=== PATIENT | male | born 1940 | race Caucasian/White ===

== ENCOUNTER 2021-07-14 10:43 | Observation (INO) | payer MEDICARE ==
[2021-07-14] MEDS ORDERED: ASPIRIN 81 MG PO STA (11:03)
[2021-07-14] MEDS ORDERED: SODIUM CHLORIDE 0.9% 1,000 ML IV STA (11:03)
--- NOTE | 2021-07-14 11:16 | ED ---
General Adult HPI - General Chief complaint: Chest Pain Stated complaint: Chest pain/High HR/Dizzy Time Seen by Provider: 07/14/21 10:53 Source: patient, RN notes reviewed Mode of arrival: wheelchair Limitations: no limitations - History of Present Illness Initial comments: 81-year-old male presents to the emergency department accompanied by his , f or evaluation of chest pain, dizziness, and elevated heart rate. Patient states his symptoms began with dizziness this morning while standing making breakfast. States his Apple watch told him his heart rate was around 150. Also complained of mild indigestion. Reports he then went to lay down and while at rest his heart rate dropped down into the 80s and he felt more comfortable. However, patient reports developing midsternal chest pressure a short time later therefore his gave him 2 baby aspirin and brought him to the ER. Patient states upon arrival he had a brief episode of sharp left-sided chest pain that lasted less than a minute and subsided rapidly. Patient denies fever, chills, headache, shortness of breath or difficulty breathing, abdominal pain, nausea, vomiting, or bowel and bladder changes. - Related Data Home Medications Medication Instructions Recorded Confirmed Aspirin EC [Ecotrin Low Dose] 81 mg PO HS 07/14/21 07/14/21 Cyanocobalamin (Vitamin B-12) 1,000 mcg PO BID 07/14/21 07/14/21 [Vitamin B-12] Finasteride [Proscar] 5 mg PO DAILY 07/14/21 07/14/21 Fluticasone Nasal [place] [Flonase 2 spray EA NOSTRIL DAILY 07/14/21 07/14/21 Nasal [place]] Losartan Potassium 50 mg PO DAILY 07/14/21 07/14/21 Tamsulosin [Flomax] 0.4 mg PO HS 07/14/21 07/14/21 hydroCHLOROthiazide [Hydrodiuril] 12.5 mg PO DAILY 07/14/21 07/14/21 Allergies Allergy/AdvReac Type Severity Reaction Status Date / Time Penicillins Allergy Anaphylaxis Verified 07/14/21 12:23 hydrocodone [From Vicodin] AdvReac Hallucinati Verified 07/14/21 12:23 ons Sulfa (Sulfonamide AdvReac Nausea & Verified 07/14/21 12:23 Antibiotics) Vomiting Review of Systems ROS Statement: Those systems with pertinent positive or pertinent negative responses have been documented in the HPI. ROS Other: All systems not noted in ROS Statement are negative. Past Medical History Past Medical History: Hypertension, Prostate Disorder Additional Past Medical History / Comment(s): polio, diverticulitis History of Any Multi-Drug Resistant Organisms: None Reported Past Surgical History: Orthopedic Surgery Past Psychological History: No Psychological Hx Reported Smoking Status: Never smoker Past Alcohol Use History: Occasional Past Drug Use History: None Reported General Exam Limitations: no limitations (Well-developed, well-nourished male in no acute distress. Initial temperature 98.7, pulse 94, respirations 18, blood pressure 153/89, pulse ox 99% on room air.) General appearance: alert, in no apparent distress Eye exam: Present: normal appearance, PERRL, EOMI. Absent: scleral icterus, conjunctival injection, periorbital swelling Neck exam: Present: normal inspection. Absent: tenderness, meningismus, l ymphadenopathy Respiratory exam: Present: normal lung sounds bilaterally. Absent: respiratory distress, wheezes, rales, rhonchi, stridor Cardiovascular Exam: Present: regular rate, normal rhythm, normal heart sounds. Absent: systolic murmur, diastolic murmur, rubs, gallop, clicks GI/Abdominal exam: Present: soft, normal bowel sounds. Absent: distended, tenderness, guarding, rebound, rigid Neurological exam: Present: alert, oriented X3, CN II-XII intact Psychiatric exam: Present: normal affect, normal mood Skin exam: Present: warm, dry, intact, normal color. Absent: rash Course Vital Signs 07/14/21 07/14/21 10:49 16:00 Temperature 98.7 F Pulse Rate 94 82 Respiratory 18 19 Rate Blood Pressure 153/89 169/78 O2 Sat by Pulse 99 98 Oximetry Medical Decision Making - Medical Decision Making 81-year-old male presents to the emergency department for evaluation after incident of elevated heart rate, dizziness, and brief chest pain prior to arrival. Upon exam, patient is resting comfortably, with no increased work of breathing, palpitations, or active chest pain. Heart rate in the 80s. EKG shows normal sinus rhythm with no ST segment elevation or depression. Initial troponin is negative. Chest x-ray is unremarkable. Patient took 2 baby aspirin prior to arrival and was given an additional 2 baby aspirin while present department. This patient's care was discussed with my attending . Patient agrees to admission for serial enzymes and cardiology evaluation. Dr. Ndiaye spoke with Dr. Mortensen regarding this patient's admission plan of care. - Lab Data Result diagrams: 07/14/21 11:16 07/14/21 11:16 Lab Results 07/14/21 07/14/21 07/14/21 Range/Units 11:16 11:16 11:16 WBC 4.9 (3.8-10.6) k/uL RBC 5.17 (4.30-5.90) m/uL Hgb 17.4 (13.0-17.5) gm/dL Hct 49.6 (39.0-53.0) % MCV 96.1 (80.0-100.0) fL MCH 33.7 (25.0-35.0) pg MCHC 35.1 (31.0-37.0) g/dL RDW 13.2 (11.5-15.5) % Plt Count 107 L (150-450) k/uL MPV 7.4 Neutrophils % 55 % Lymphocytes % 33 % Monocytes % 7 % Eosinophils % 2 % Basophils % 1 % Neutrophils # 2.7 (1.3-7.7) k/uL Lymphocytes # 1.6 (1.0-4.8) k/uL Monocytes # 0.4 (0-1.0) k/uL Eosinophils # 0.1 (0-0.7) k/uL Basophils # 0.0 (0-0.2) k/uL Hyperchromasia Slight PT 10.0 (9.0-12.0) sec INR 0.9 (<1.2) APTT 21.7 L (22.0-30.0) sec Sodium 136 L (137-145) mmol/L Potassium 4.1 (3.5-5.1) mmol/L Chloride 102 (98-107) mmol/L Carbon Dioxide 23 (22-30) mmol/L Anion Gap 11 mmol/L BUN 17 (9-20) mg/dL Creatinine 1.00 (0.66-1.25) mg/dL Est GFR (CKD-EPI)AfAm 82 (>60 ml/min/1.73 sqM) Est GFR (CKD-EPI)NonAf 71 (>60 ml/min/1.73 sqM) Glucose 125 H (74-99) mg/dL Calcium 9.8 (8.4-10.2) mg/dL Magnesium 1.9 (1.6-2.3) mg/dL Total Bilirubin 0.9 (0.2-1.3) mg/dL AST 23 (17-59) U/L ALT 17 (4-49) U/L Alkaline Phosphatase 58 (38-126) U/L Troponin I (0.000-0.034) ng/mL Total Protein 7.8 (6.3-8.2) g/dL Albumin 4.8 (3.5-5.0) g/dL 07/14/21 Range/Units 11:16 WBC (3.8-10.6) k/uL RBC (4.30-5.90) m/uL Hgb (13.0-17.5) gm/dL Hct (39.0-53.0) % MCV (80.0-100.0) fL MCH (25.0-35.0) pg MCHC (31.0-37.0) g/dL RDW (11.5-15.5) % Plt Count (150-450) k/uL MPV Neutrophils % % Lymphocytes % % Monocytes % % Eosinophils % % Basophils % % Neutrophils # (1.3-7.7) k/uL Lymphocytes # (1.0-4.8) k/uL Monocytes # (0-1.0) k/uL Eosinophils # (0-0.7) k/uL Basophils # (0-0.2) k/uL Hyperchromasia PT (9.0-12.0) sec INR (<1.2) APTT (22.0-30.0) sec Sodium (137-145) mmol/L Potassium (3.5-5.1) mmol/L Chloride (98-107) mmol/L Carbon Dioxide (22-30) mmol/L Anion Gap mmol/L BUN (9-20) mg/dL Creatinine (0.66-1.25) mg/dL Est GFR (CKD-EPI)AfAm (>60 ml/min/1.73 sqM) Est GFR (CKD-EPI)NonAf (>60 ml/min/1.73 sqM) Glucose (74-99) mg/dL Calcium (8.4-10.2) mg/dL Magnesium (1.6-2.3) mg/dL Total Bilirubin (0.2-1.3) mg/dL AST (17-59) U/L ALT (4-49) U/L Alkaline Phosphatase (38-126) U/L Troponin I <0.012 (0.000-0.034) ng/mL Total Protein (6.3-8.2) g/dL Albumin (3.5-5.0) g/dL - EKG Data EKG shows normal: sinus rhythm Rate: normal EKG Comments: EKG was obtained at 1055 and shows normal sinus rhythm. Ventricular rate 80. IL interval 186. QRS duration 88. QT/QTC 328/378. No ST segment elevation or depression noted. - Radiology Data Radiology results: report reviewed, image reviewed Chest x-ray was obtained. Report was reviewed in its entirety. Impression per Dr. Faye is no acute pulmonary process. Disposition Clinical Impression: Chest pain, Dizziness Disposition: ADMITTED IP TO THIS [facility] Condition: Serious Decision Date: 07/14/21 Decision Time: 13:55
--- NOTE | 2021-07-14 11:27 | XR ---
EXAMINATION TYPE: XR chest 2V DATE OF EXAM: 07/14/2021 COMPARISON: None INDICATION: Chest pain TECHNIQUE: Frontal and lateral views of the chest are obtained. FINDINGS: The heart size is normal. The pulmonary vasculature is normal. The lungs are clear. IMPRESSION: 1. No acute pulmonary process.
[2021-07-14 11:33] LABS: Basophils % (A) 1 %; Eosinophils # (A) 0.1 k/uL (0-0.7); Eosinophils % (A) 2 %; HCT 49.6 % (39.0-53.0); HGB 17.4 gm/dL (13.0-17.5); Hyperchromasia Slight; Lymphocytes # (A) 1.6 k/uL (1.0-4.8); Lymphocytes % (A) 33 %; MCH 33.7 pg (25.0-35.0); MCHC 35.1 g/dL (31.0-37.0); MCV 96.1 fL (80.0-100.0); Mean Platelet Volume 7.4; Monocytes # (A) 0.4 k/uL (0-1.0); Monocytes % (A) 7 %; Neutrophils # (A) 2.7 k/uL (1.3-7.7); Neutrophils % (A) 55 %; RBC 5.17 m/uL (4.30-5.90); RDW 13.2 % (11.5-15.5); WBC 4.9 k/uL (3.8-10.6)
[2021-07-14 11:48] LABS: INR 0.9 (<1.2)
[2021-07-14 11:54] LABS: Albumin 4.8 g/dL (3.5-5.0); Calcium 9.8 mg/dL (8.4-10.2); Magnesium 1.9 mg/dL (1.6-2.3); Partial Thromboplastin Time 21.7 sec (22.0-30.0); Potassium 4.1 mmol/L (3.5-5.1); Total Bilirubin 0.9 mg/dL (0.2-1.3); Total Protein 7.8 g/dL (6.3-8.2)
[2021-07-14 12:11] LABS: Platelet Count 107 k/uL (150-450)
[2021-07-14] MEDS ORDERED: ACETAMINOPHEN TAB 325 MG TAB PO PRN (13:48)
[2021-07-14] MEDS ORDERED: IBUPROFEN 400 MG TAB PO PRN (13:48)
[2021-07-14] MEDS ORDERED: REGADENOSON 0.4 MG/5 ML SYRINGE IV PRN (15:53)
[2021-07-14] MEDS ORDERED: AMINOPHYLLINE 500 MG/20 ML VIAL IV PRN (15:53)
[2021-07-14] MEDS ORDERED: CAFFEINE CITRATE 60 MG/3 ML VIAL IV PRN (15:53)
--- NOTE | 2021-07-14 16:07 | P.HPIM ---
History of Present Illness H&P Date: 07/14/21 Chief Complaint: Chest pain This is a pleasant 81-year-old male who presents to [facility] with chest pressure and a fast heart rate. Patient states that he was making breakfast this morning when he suddenly felt unwell. He looked at his watch and saw that his heart rate was in the 150s. This lasted for about 10 minutes. Patient felt lightheaded and dizzy. Patient then lost his appetite. Patient decided to go to the hospital. On his way to the hospital patient started to feel chest pressure. Patient took aspirin as he was concerned of having a heart attack. Patient currently denies chest pain, chest pressure, shortness of breath, palpitations,nausea, vomiting, dizziness, fever, or chills. Patient denies a history of coronary artery disease. He does have history of hypertension and is currently taking losartan 50 mg daily. Patient is laying comfortably in the bed. Vitals are stable with mildly elevated blood pressure. EKG was insignificant for an arrhythmia showed normal sinus rhythm. Chest x-ray showed no acute pulmonary process. Labs were significant for thrombocytopenia and mild hyperglycemia. Review of Systems All systems: negative Past Medical History Past Medical History: Hypertension, Prostate Disorder Additional Past Medical History / Comment(s): polio, diverticulitis History of Any Multi-Drug Resistant Organisms: None Reported Past Surgical History: Orthopedic Surgery Past Psychological History: No Psychological Hx Reported Smoking Status: Never smoker Past Alcohol Use History: Occasional Past Drug Use History: None Reported Medications and Allergies Home Medications Medication Instructions Recorded Confirmed Type Aspirin EC [Ecotrin Low Dose] 81 mg PO HS 07/14/21 07/14/21 History Cyanocobalamin (Vitamin B-12) 1,000 mcg PO BID 07/14/21 07/14/21 History [Vitamin B-12] Finasteride [Proscar] 5 mg PO DAILY 07/14/21 07/14/21 History Fluticasone Nasal [place] [Flonase 2 spray EA NOSTRIL DAILY 07/14/21 07/14/21 History Nasal [place]] Losartan Potassium 50 mg PO DAILY 07/14/21 07/14/21 History Tamsulosin [Flomax] 0.4 mg PO HS 07/14/21 07/14/21 History hydroCHLOROthiazide [Hydrodiuril] 12.5 mg PO DAILY 07/14/21 07/14/21 History Allergies Allergy/AdvReac Type Severity Reaction Status Date / Time Penicillins Allergy Anaphylaxis Verified 07/14/21 12:23 hydrocodone [From Vicodin] AdvReac Hallucinati Verified 07/14/21 12:23 ons Sulfa (Sulfonamide AdvReac Nausea & Verified 07/14/21 12:23 Antibiotics) Vomiting Physical Exam Osteopathic Statement: *. No significant issues noted on an osteopathic structural exam other than those noted in the History and Physical/Consult. Vitals: Vital Signs Temp Pulse Resp BP Pulse Ox 07/14/21 10:49 98.7 F 94 18 153/89 99 Intake and Output 07/14/21 07/14/21 07/14/21 06:59 14:59 22:59 Other: Weight 88.451 kg General: [non toxic], [no distress], [appears at stated age] Derm: [warm], [dry] Head: [atraumatic], [normocephalic], [symmetric] Eyes: [EOMI], [no lid lag], [anicteric sclera] Mouth: [no lip lesion], [mucus membranes moist] Cardiovascular: [S1S2 reg], [no murmur], [positive posterior tibial pulse bilateral], Lungs: [CTA bilateral], [no rhonchi, no rales] , [no accessory muscle use] Abdominal: [soft], [ nontender to palpation], [no guarding], [no appreciable organomegaly] Ext: [no gross muscle atrophy], [no edema], [no contractures] Neuro: [ CN II-XI grossly intact], [no focal neuro deficits] Psych: [Alert], [oriented], [appropriate affect] Results CBC & Chem 7: 07/14/21 11:16 07/14/21 11:16 Labs: Abnormal Lab Results - Last 24 Hours (Table) 07/14/21 07/14/21 07/14/21 Range/Units 11:16 11:16 11:16 Plt Count 107 L (150-450) k/uL APTT 21.7 L (22.0-30.0) sec Sodium 136 L (137-145) mmol/L Glucose 125 H (74-99) mg/dL Thrombosis Risk Factor Assmnt - DVT/VTE Prophylaxis DVT/VTE Prophylaxis: Pharmacologic Prophylaxis ordered Assessment and Plan Assessment: 1. Atypical chest pain with tachycardia resolved Concern for arrhythmia Continue telemetry Stress test ordered Echocardiogram ordered Add metoprolol 25 mg by mouth daily Hold hydrochlorothiazide Continue losartan Continue aspirin daily Consult cardiology 2. History of hypertension currently uncontrolled Metoprolol added 3. History of BPH Resume finasteride and Flomax 4. GI DVT prophylaxis 5. A.m. labs 6. Nothing by mouth after midnight Greater than 45 minutes spent coordinating care, documenting and counseling patient. Time with Patient: Greater than 30
[2021-07-14] MEDS: ENOXAPARIN 40 MG/0.4 ML SYRINGE SQ SCH (17:47)
[2021-07-14] MEDS: FAMOTIDINE 20 MG TAB PO SCH (17:47)
[2021-07-14] MEDS: METOPROLOL SUCCINATE (ER) 25 MG TAB.ER.24H PO SCH (17:48)
[2021-07-14] MEDS ORDERED: diphenhydrAMINE 50 MG CAP PO PRN (18:20)
[2021-07-14] MEDS: CYANOCOBALAMIN 500 MCG TAB PO SCH (20:47)
[2021-07-14] MEDS: FLUTICASONE 50MCG/SPRAY NASAL 16GM EA NOSTRIL SCH (20:47)
[2021-07-14] MEDS ORDERED: ASPIRIN 81 MG PO SCH (21:00)
[2021-07-14] MEDS ORDERED: TAMSULOSIN 0.4 MG CAP.ER.24H PO SCH (21:00)
[2021-07-15] MEDS ORDERED: REGADENOSON 0.4 MG/5 ML SYRINGE IV PRN (06:00)
[2021-07-15 06:54] LABS: ALT 12 U/L (4-49); AST 19 U/L (17-59); African American GFR (CKD) 80 (>60 ml/min/1.73 sqM); Albumin 3.3 g/dL (3.5-5.0); Albumin/Globulin Ratio 1.4; Alkaline Phosphatase 31 U/L (38-126); Anion Gap 4 mmol/L; Blood Urea Nitrogen 15 mg/dL (9-20); Calcium 8.6 mg/dL (8.4-10.2); Carbon Dioxide 25 mmol/L (22-30); Chloride 107 mmol/L (98-107); Globulin 2.4 g/dL; Glucose 90 mg/dL (74-99); Magnesium 1.9 mg/dL (1.6-2.3); Non-African American GFR(CKD) 69 (>60 ml/min/1.73 sqM); Potassium 4.3 mmol/L (3.5-5.1); Sodium 136 mmol/L (137-145); Total Bilirubin 0.9 mg/dL (0.2-1.3); Total Protein 5.7 g/dL (6.3-8.2)
[2021-07-15] MEDS: ENOXAPARIN 40 MG/0.4 ML SYRINGE SQ SCH (07:25)
[2021-07-15] MEDS: CYANOCOBALAMIN 500 MCG TAB PO SCH (07:25)
[2021-07-15] MEDS: FAMOTIDINE 20 MG TAB PO SCH (07:26)
[2021-07-15] MEDS: FLUTICASONE 50MCG/SPRAY NASAL 16GM EA NOSTRIL SCH (07:27)
[2021-07-15 07:33] VITALS: RESP 18
--- NOTE | 2021-07-15 08:22 | P.CRDCN ---
History of Present Illness History of present illness: HISTORY OF PRESENTING ILLNESS Patient is a pleasant 81-year-old male with history of hypertension, prostate disorder, reported polio who presents secondary to episode of heart racing. Patient states he was at home not doing anything in particular and started feeling his heart race and checked his apple watch which stated his heart rate was going approximately 150. This only lasted for a couple minutes and he admitted to palpitations however no significant chest pain, shortness of breath or lightheadedness. He had not had any similar episodes in the past and therefore decided come to the emergency department. On the drive in he started having some chest pressure sensation which she normally does not have. He does occasionally have indigestion however this is mainly associated with eating. He stays active walking approximately 2-3 miles a day. He has not seen a rate reviewer previously. Blood work White blood cell 4.9 hemoglobin 17.4, platelets 107, sodium 136, BUN 17, creatinine 1.0, troponin negative 3. EKG shows normal sinus rhythm, normal axis, no significant ST or T-wave abnormalities. REVIEW OF SYSTEMS At the time of my exam: CONSTITUTIONAL: Denies fever or chills. CARDIOVASCULAR: +chest pain, no shortness of breath, orthopnea, PND or palpitations. RESPIRATORY: Denies cough. GASTROINTESTINAL: Denies abdominal pain, diarrhea, constipation, nausea or vomi ting. MUSCULOSKELETAL: Denies myalgias. NEUROLOGIC: Denies numbness, tingling or weakness. ENDOCRINE: Denies fatigue, weight change, polydipsia or polyurina. GENITOURINARY: Denies burning, hematuria or urgency with micturation. HEMATOLOGIC: Denies history of anemia or bleeding. PHYSICAL EXAMINATION Vital signs reviewed. CONSTITUTIONAL: No apparent distress. HEENT: Head is normocephalic. Pupils are equal, round. Sclerae anicteric. Mucous membranes of the mouth are moist. No JVD. No carotid bruit. CHEST EXAMINATION: Lungs are clear to auscultation. No chest wall tenderness is noted on palpation or with deep breathing. HEART EXAMINATION: Regular rate and rhythm. S1, S2 heard. No murmurs, gallops or rub. ABDOMEN: Soft, nontender. Positive bowel sounds. EXTREMITIES: 2+ peripheral pulses, no lower extremity edema and no calf tenderness. NEUROLOGIC EXAMINATION: Patient is awake, alert and oriented x3. ASSESSMENT 1. Atypical chest pain, troponin normal 3 2. Palpitations, heart racing at approximately 150 per apple watch. No further episodes 3. Hypertension PLAN Patient's main presentation was palpitations which have since resolved. EKG on admission shows normal sinus rhythm and no further events on telemetry. May consider outpatient event monitor however this is only his first episode and has not had more episodes in the past and therefore question if we would catch any of these episodes. Check 2-D echo as well as stress test given atypical chest pain. May be a comp onent of anxiety. Does not appear typical of angina. If stress test and echo are unrevealing, patient would be cleared for discharge with outpatient follow- up. Past Medical History Past Medical History: Hypertension, Prostate Disorder Additional Past Medical History / Comment(s): polio, diverticulitis History of Any Multi-Drug Resistant Organisms: None Reported Past Surgical History: Orthopedic Surgery Additional Past Surgical History / Comment(s): arthroscopic on his left knee and then broke his right hand and had to have 3 surgeries both over 20 years ago Past Psychological History: No Psychological Hx Reported Smoking Status: Never smoker Past Alcohol Use History: Occasional Past Drug Use History: None Reported Medications and Allergies Home Medications Medication Instructions Recorded Confirmed Type Aspirin EC [Ecotrin Low Dose] 81 mg PO HS 07/14/21 07/14/21 History Cyanocobalamin (Vitamin B-12) 1,000 mcg PO BID 07/14/21 07/14/21 History [Vitamin B-12] Finasteride [Proscar] 5 mg PO DAILY 07/14/21 07/14/21 History Fluticasone Nasal [place] [Flonase 2 spray EA NOSTRIL DAILY 07/14/21 07/14/21 History Nasal [place]] Losartan Potassium 50 mg PO DAILY 07/14/21 07/14/21 History Tamsulosin [Flomax] 0.4 mg PO HS 07/14/21 07/14/21 History hydroCHLOROthiazide [Hydrodiuril] 12.5 mg PO DAILY 07/14/21 07/14/21 History Allergies Allergy/AdvReac Type Severity Reaction Status Date / Time Penicillins Allergy Anaphylaxis Verified 07/14/21 12:23 hydrocodone [From Vicodin] AdvReac Hallucinati Verified 07/14/21 12:23 ons Sulfa (Sulfonamide AdvReac Nausea & Verified 07/14/21 12:23 Antibiotics) Vomiting Physical Exam Vitals: Vital Signs Temp Pulse Pulse Resp BP BP Pulse Ox 07/15/21 07:00 98.0 F 70 18 160/90 94 L 07/15/21 02:44 97.8 F 68 16 143/83 93 L 07/14/21 23:00 98.1 F 74 16 138/90 96 07/14/21 18:59 97.9 F 71 16 132/82 95 07/14/21 16:00 82 19 169/78 98 07/14/21 10:49 98.7 F 94 18 153/89 99 Intake and Output 07/14/21 07/15/21 07/15/21 22:59 06:59 14:59 Output Total 0 0 Balance 0 0 Output: Emesis 0 0 Results 07/14/21 11:16 07/15/21 05:42 Cardiac Enzymes 07/14/21 07/14/21 07/14/21 Range/Units 11:16 11:16 18:39 AST 23 (17-59) U/L Troponin I <0.012 <0.012 (0.000-0.034) ng/mL 07/14/21 07/15/21 Range/Units 23:59 05:42 AST 19 (17-59) U/L Troponin I <0.012 (0.000-0.034) ng/mL Coagulation 07/14/21 Range/Units 11:16 PT 10.0 (9.0-12.0) sec APTT 21.7 L (22.0-30.0) sec CBC 07/14/21 Range/Units 11:16 WBC 4.9 (3.8-10.6) k/uL RBC 5.17 (4.30-5.90) m/uL Hgb 17.4 (13.0-17.5) gm/dL Hct 49.6 (39.0-53.0) % Plt Count 107 L (150-450) k/uL Comprehensive Metabolic Panel 07/14/21 07/15/21 Range/Units 11:16 05:42 Sodium 136 L 136 L (137-145) mmol/L Potassium 4.1 4.3 (3.5-5.1) mmol/L Chloride 102 107 (98-107) mmol/L Carbon Dioxide 23 25 (22-30) mmol/L BUN 17 15 (9-20) mg/dL Creatinine 1.00 1.02 (0.66-1.25) mg/dL Glucose 125 H 90 (74-99) mg/dL Calcium 9.8 8.6 (8.4-10.2) mg/dL AST 23 19 (17-59) U/L ALT 17 12 (4-49) U/L Alkaline Phosphatase 58 31 L (38-126) U/L Total Protein 7.8 5.7 L (6.3-8.2) g/dL Albumin 4.8 3.3 L (3.5-5.0) g/dL Current Medications Generic Name Dose Route Start Last Admin Trade Name Freq PRN Reason Stop Dose Admin Acetaminophen 650 mg 07/14/21 13:48 Acetaminophen Tab 325 Mg Tab PO Q6HR PRN Mild Pain or Fever > 100.5 Aspirin 81 mg 07/14/21 21:00 07/14/21 20:47 Aspirin 81 Mg PO 81 mg HS PAMELA Administration Cyanocobalamin 1,000 mcg 07/14/21 21:00 07/15/21 07:25 Cyanocobalamin 500 Mcg Tab PO 1,000 mcg BID PAMELA Administration Diphenhydramine HCl 50 mg 07/14/21 18:20 Diphenhydramine 50 Mg Cap PO HS PRN Insomnia Enoxaparin Sodium 40 mg 07/14/21 16:00 07/15/21 07:25 Enoxaparin 40 Mg/0.4 Ml Syringe SQ 40 mg DAILY PAMELA Administration Famotidine 40 mg 07/14/21 16:00 07/15/21 07:26 Famotidine 20 Mg Tab PO 40 mg DAILY PAMELA Administration Finasteride 5 mg 07/15/21 09:00 07/15/21 07:26 Finasteride 5 Mg Tab PO 5 mg DAILY PAMELA Administration Fluticasone Propionate 2 spray 07/14/21 18:30 07/15/21 07:27 Fluticasone 50mcg/[place] Nasal 16gm EA NOSTRIL 2 spray DAILY PAMELA Administration Ibuprofen 400 mg 07/14/21 13:48 Ibuprofen 400 Mg Tab PO Q6HR PRN Mild Pain or Fever > 100.5 Losartan Potassium 50 mg 07/15/21 09:00 07/15/21 07:26 Losartan 50 Mg Tab PO 50 mg DAILY PAMELA Administration Metoprolol Succinate 25 mg 07/14/21 15:45 07/14/21 17:48 Metoprolol Succinate (Er) 25 Mg Tab.Er.24h PO 25 mg DAILY PAMELA Administration Tamsulosin HCl 0.4 mg 07/14/21 21:00 07/14/21 20:48 Tamsulosin 0.4 Mg Cap.Er.24h PO 0.4 mg HS PAMELA Administration Intake and Output 07/14/21 07/15/21 07/15/21 22:59 06:59 14:59 Output Total 0 0 Balance 0 0 Output: Emesis 0 0 07/14/21 11:16 07/15/21 05:42
[2021-07-15] MEDS ORDERED: LOSARTAN 50 MG TAB PO SCH (09:00)
[2021-07-15] MEDS ORDERED: FINASTERIDE 5 MG TAB PO SCH (09:00)
[2021-07-15] MEDS: METOPROLOL SUCCINATE (ER) 25 MG TAB.ER.24H PO SCH (09:57)
--- NOTE | 2021-07-15 10:31 | NM ---
EXAMINATION TYPE: NM stress lexiscan cardiolite DATE OF EXAM: 07/15/2021 COMPARISON: NONE HISTORY: Chest pain TECHNIQUE: After the intravenous administration of 9.8 mCi Tc 99m Sestamibi - Cardiolite resting SPE CT images acquired 60 minutes post injection. The patient received 0.4mg Lexiscan, 26 mCi Tc 99m Sestamibi - Stress images obtained 45 minutes post injection FINDINGS: Review of stress and rest SPECT images demonstrates no distinct perfusion abnormality. Gated analysi s shows normal wall motion with an estimated left ventricular ejection fraction of 58 %. IMPRESSION: No scintigraphic evidence for reversible ischemia.
[2021-07-15 11:04] LABS: Basophils # (A) 0.03 X 10*3/uL (0.00-0.10); Basophils % (A) 0.7 %; Eosinophils # (A) 0.14 X 10*3/uL (0.04-0.35); Eosinophils % (A) 3.3 %; HCT 41.9 % (39.6-50.0); Lymphocytes # (A) 1.15 X 10*3/uL (0.90-5.00); Lymphocytes % (A) 27.5 %; MCH 34.2 pg (27.0-32.0); MCHC 35.8 g/dL (32.0-37.0); MCV 95.4 fL (80.0-97.0); Mean Platelet Volume 10.4 fL (9.5-12.2); Monocytes # (A) 0.36 X 10*3/uL (0.20-1.00); Monocytes % (A) 8.6 %; Neutrophils # (A) 2.49 X 10*3/uL (1.80-7.70); Neutrophils % (A) 59.7 %; Platelet Count 104 X 10*3/uL (140-440); RBC 4.39 X 10*6/uL (4.40-5.60); WBC 4.18 X 10*3/uL (4.50-10.00)
--- NOTE | 2021-07-15 11:41 | ECHOF ---
Referral Reason:chest pain MEASUREMENTS -------- HEIGHT: 175.3 cm WEIGHT: 88.5 kg BP: 143/83 RVIDd: 3.4 cm (< 3.3) IVSd: 1.4 cm (0.6 - 1.1) LVIDd: 3.4 cm (3.9 - 5.3) LVPWd: 1.4 cm (0.6 - 1.1) IVSs: 2.1 cm LVIDs: 2.4 cm LVPWs: 2.0 cm LA Diam: 3.8 cm (2.7 - 3.8) LAESV Index (A-L): 23.00 ml/m Ao Diam: 3.9 cm (2.0 - 3.7) AV Cusp: 2.1 cm (1.5 - 2.6) MV EXCURSION: 12.842 mm (> 18.000) MV EF SLOPE: 42 mm/s (70 - 150) EPSS: 0.7 cm MV E Carl: 1.06 m/s MV DecT: 322 ms MV A Carl: 1.32 m/s MV E/A Ratio: 0.80 AR PHT: 695 ms RAP: 5.00 mmHg RVSP: 36.58 mmHg FINDINGS -------- Sinus rhythm. This was a technically adequate study. The left ventricular size is normal. There is moderate concentric left ventricular hypertrophy. O verall left ventricular systolic function is normal with, an EF between 60 - 65 %. The right ventricle is mildly enlarged. Normal LA size by volume 22+/-6 ml/m2. The right atrium is normal in size. Interatrial and interventricular septum intact. There is mild aortic valve sclerosis. There is mild aortic regurgitation. There is trace to mild mitral regurgitation. Mild tricuspid regurgitation present. There is mild pulmonary hypertension. The right ventricular systolic pressure, as measured by Doppler, is 36.58mmHg. Trace/mild (physiologic) pulmonic regurgitation. The aortic root is dilated measuring 3.9cm. Normal inferior vena cava with normal inspiratory collapse consistent with estimated right atrial pre ssure of 5 mmHg. There is no pericardial effusion. CONCLUSIONS -------- 1. The left ventricular size is normal. 2. There is moderate concentric left ventricular hypertrophy. 3. Overall left ventricular systolic function is normal with, an EF between 60 - 65 %. 4. The right ventricle is mildly enlarged. 5. There is mild aortic valve sclerosis. 6. There is mild aortic regurgitation. 7. There is trace to mild mitral regurgitation. 8. Mild tricuspid regurgitation present. 9. There is mild pulmonary hypertension. 10. The right ventricular systolic pressure, as measured by Doppler, is 36.58mmHg. 11. Trace/mild (physiologic) pulmonic regurgitation. 12. The aortic root is dilated measuring 3.9cm. 13. There is no pericardial effusion. HEAD OF INSIGHT: Kat Carvajal RDCS
--- NOTE | 2021-07-15 13:24 | P.STRESS ---
- Stress Test Note Stress Test Results/Findings: Exam Performed: NM stress lexiscan cardiolite Exam Date: 07/15/21 Reason for Exam: Chest Pressure Height: 5 ft 9 in Weight: 88.45 kg Protocol: Lexiscan Stage: na Duration of Exercise: na Resting Heart Rate: 63 Resting Blood Pressure: 153/91 Maximum Achieved Heart Rate: 85 Maximum Achieved Blood Pressure: 164/84 85% PMHR: 119 100% PMHR: 140 METS: na Technologist Comment: Stress Test Results/Findings: At baseline EKG showed normal sinus rhythm, normal axis, no significant ST or T wave abnormalities. Patient recieved IV infusion of Lexiscan 0.4mg and at peak infusion EKG showed no significant change from baseline. Conclusions: 1. Normal EKG response to Lexiscan infusion 2. Nuclear imaging to be reported separately.
[2021-07-15 14:33] VITALS: BP 151/87; PULSE 63; TEMP 98.1
--- NOTE | 2021-07-15 15:27 | P.DS ---
Providers Date of admission: 07/14/21 13:01 Expected date of discharge: 07/15/21 Attending physician: Krystle Mortensen Primary care physician: Physician Nonstaff Hospital Course: Discharge Diagnosis: Atypical chest pain, acute coronary event ruled out Palpitations, tachycardia Hypertension BPH Thrombocytopenia of unclear etiology Hospital Course: Patient is a pleasant 81-year-old male who presented to [facility] on 07/14/21 with a chief complaint of chest pressure and a fast heart rate. patient reported that he was making breakfast and suddenly felt lightheaded, dizzy, and began to experience chest pressure and a fast heart rate. Patient took an aspirin at home as he was concerned he was having a heart attack if he has never experienced anything similar to this in the past. patient was seen and fully evaluated in the emergency department resulting in admission under our services with consultation to cardiology for atypical chest pain with tachycardia. A chest x-ray was completed negative for acute cardiopulmonary process. EKG showing normal sinus rhythm at 80 bpm with no noted T wave ST abnormality showing no signs of acute ischemia. Troponins were trended and resulted at less than 0.0123 draws. , BMP, and coags unremarkable with the exception of thrombocytopenia with platelet count of 107,000. Covid PCR negative. Echocardiogram revealing a normal EF between 60 and 65%. Lexiscan stress test negative, showing no scintigraphic evidence for reversible ischemia. Acute coronary event ruled out. Cardiology recommended patient follow-up outpatient in office. patient remains free from headache, lightheadedness, dizziness, chest pain, palpitations, shortness of breath, nausea, or experiencing any numbness/tingling/weakness in his extremities. Patient reports symptoms resolved shortly after arrival to hospital. Patient is medically stable at this time and stable for discharge home. Patient to follow-up with PCP and cardiology as discussed. Physical exam: Vital signs reviewed and stable. General: Nontoxic, no distress and appears stated age. Derm: Skin warm and dry, normal coloration for ethnicity. Head: Atraumatic, normocephalic and symmetric. Eyes: EOMs intact, no lid lag, and anicteric sclera Mouth: no lip lesions, mucus membranes moist Cardiovascular: regular rate and rhythm with normal S1S2, no murmur, positive posterior tibial pulses bilaterally, and cap refill < 2 seconds. Lungs: Respirations even, regular, and unlabored on room air. Lungs CTA bilaterally, no rhonchi, no rales, no wheezing, and no accessory muscle usage. Abdominal: soft, nontender to palpation, no guarding, no appreciable organomegaly Ext: ROM intact. No gross muscle atrophy, no edema, no contractures Neuro: Speech clear, face symmetrical and CN II-XII grossly intact with no noted focal neuro deficits Psych: Alert and oriented to person, place, time, and situation. Appropriate and pleasant affect. A total of 45 minutes of time were spent preparing this complex discharge summary. Patient Condition at Discharge: Stable Plan - Discharge Summary New Discharge Prescriptions: Continue hydroCHLOROthiazide [Hydrodiuril] 12.5 mg PO DAILY Tamsulosin [Flomax] 0.4 mg PO HS Losartan Potassium 50 mg PO DAILY Finasteride [Proscar] 5 mg PO DAILY Cyanocobalamin (Vitamin B-12) [Vitamin B-12] 1,000 mcg PO BID Aspirin EC [Ecotrin Low Dose] 81 mg PO HS Discontinued Fluticasone Nasal [place] [Flonase Nasal [place]] 2 spray EA NOSTRIL DAILY Discharge Medication List Aspirin EC [Ecotrin Low Dose] 81 mg PO HS 07/14/21 [History] Cyanocobalamin (Vitamin B-12) [Vitamin B-12] 1,000 mcg PO BID 07/14/21 [History] Finasteride [Proscar] 5 mg PO DAILY 07/14/21 [History] Losartan Potassium 50 mg PO DAILY 07/14/21 [History] Tamsulosin [Flomax] 0.4 mg PO HS 07/14/21 [History] hydroCHLOROthiazide [Hydrodiuril] 12.5 mg PO DAILY 07/14/21 [History] Follow up Appointment(s)/Referral(s): Yuan Jordan DO [STAFF PHYSICIAN] - 1 Week Nonstaff,Physician [Primary Care Provider] - 1-2 days Activity/Diet/Wound Care/Special Instructions: Activity: As tolerated. Take breaks as needed. Diet: Heart healthy and carb consistent diet. Avoid salts, or foods with hidden salts such as canned or boxed foods and frozen dinners. Extra salt makes your heart work harder and traps the fluid in your body for longer. Special Instructions: Take all of your medications as directed and remember to keep all of your doctor's appointments and follow-up as needed. Thank you for allowing us to participate in your care, it was truly a pleasure having you for our patient!!! Follow up outpatient and recommend repeat labs to monitor slightly low platelet count.
[2021-07-15 20:38] LABS: Chol/HDL Ratio 3.07 Ratio; LDL Cholesterol,Calculated 60.1 mg/dL (0.0-131.0)
== END 2021-07-15 16:19 | disposition home or self-care (01) ==
LOC: EC 10:43 → 6NMEDSUR 13:01
PROVIDERS: ADMIT Internal Medicine; ATTEND Internal Medicine
DX: R07.89 Other chest pain (principal); R00.2 Palpitations; R00.0 Tachycardia, unspecified; R42 Dizziness and giddiness; R07.2 Precordial pain; Z20.822 Contact with and (suspected) exposure to COVID-19; I10 Essential (primary) hypertension; K30 Functional dyspepsia; D69.6 Thrombocytopenia, unspecified; R73.9 Hyperglycemia, unspecified; N40.0 Benign prostatic hyperplasia without lower urinary tract symptoms; K57.90 Diverticulosis of intestine, part unspecified, without perforation or abscess without bleeding; Z79.899 Other long term (current) drug therapy; Z79.82 Long term (current) use of aspirin; Z88.0 Allergy status to penicillin; Z88.2 Allergy status to sulfonamides; Z88.5 Allergy status to narcotic agent; Z86.12 Personal history of poliomyelitis
CPT/HCPCS: 99285; 96361 ×3; 96372 ×2; 96360; 36415; 93005; 93017; 93306; 80061; 80053 ×2; 84443; 83735 ×2; 84100; 84484; 85025 ×2; 85610; 85730; 83036; 87635; 71046; 78452; G0378 ×2; A9500; S0138; J1650 ×2; J2785